=== PATIENT | female | born 1975 | race Caucasian/White ===

== ENCOUNTER 2018-02-13 15:14 | Emergency (ER) | payer OTHER ==
[2018-02-13 15:41] VITALS: BP 145/96; PULSE 86; TEMP 97.5; BMI 23.4
--- NOTE | 2018-02-13 16:43 | PDOC ---
Attending Attestation - Resident Resident Name: Julio Dee - ED Attending Attestation I have performed the following: I have examined & evaluated the patient, The case was reviewed & discussed with the resident, I agree w/resident's findings & plan, Exceptions are as noted
--- NOTE | 2018-02-13 16:52 | PDOC ---
History of Present Illness - General Chief Complaint: Chest Pain Stated Complaint: CHEST PAIN History Source: Patient - History of Present Illness Initial Comments: 02/13/18 16:32 42F with pmh of brain aneurysm last year presents to the ED with sternal chest pain and shortness of breath suddenly since last night. No cough, sore throat, fever, leg swelling or leg pain. No recent travel. 02/13/18 16:56 Past History - Past Medical History Allergies/Adverse Reactions: Allergies Allergy/AdvReac Type Severity Reaction Status Date / Time No Known Allergies Allergy Verified 02/13/18 15:16 Home Medications: Ambulatory Orders NK [No Known Home Medication] 02/13/18 CVA: Yes (AVM) COPD: No CHF: No - Surgical History Neurologic Surgery: Yes (AVM CLIPPED) - Suicide/Smoking/Psychosocial Hx Smoking History: Never smoked Hx Alcohol Use: No Drug/Substance Use Hx: No Substance Use Type: None Review of Systems - Review of Systems Able to Perform ROS?: Yes Is the patient limited Romansh proficient: No Constitutional: No: Symptoms Reported HEENTM: No: Symptoms Reported Respiratory: Yes: See HPI Cardiac (ROS): No: Symptoms Reported ABD/GI: No: Symptoms Reported : No: Symptoms Reported *Physical Exam - Vital Signs Last Vital Signs Temp Pulse Resp BP Pulse Ox 97.5 F L 86 18 145/96 100 02/13/18 15:15 02/13/18 15:15 02/13/18 15:15 02/13/18 15:15 02/13/18 15:15 - Physical Exam General Appearance: Yes: Nourished, Appropriately Dressed. No: Apparent Distress HEENT: positive: EOMI, MAR, Normal ENT Inspection Respiratory/Chest: positive: Chest Tender (over sternum), Lungs Clear, Normal Breath Sounds. negative: Respiratory Distress Cardiovascular: positive: Regular Rhythm, Regular Rate, S1, S2 Gastrointestinal/Abdominal: positive: Normal Bowel Sounds, Flat, Soft. negative : Tender Musculoskeletal: positive: Normal Inspection. negative: CVA Tenderness Integumentary: positive: Normal Color, Dry, Warm Neurologic: positive: Fully Oriented, Alert, Normal Mood/Affect, Normal Response , Motor Strength 5/5 ED Treatment Course - LABORATORY CBC & Chemistry Diagram: 02/13/18 16:45 02/13/18 16:45 - RADIOLOGY Radiology Studies Ordered: Category Date Time Status CHEST PA & LAT [RAD] Stat Radiology 02/13/18 16:14 Ordered Medical Decision Making - Medical Decision Making 02/13/18 17:04 xray. labs 02/13/18 17:49 All WNL. Patient declined motrin. ok to d/c *DC/Admit/Observation/Transfer Diagnosis at time of Disposition: Costochondritis, acute - Discharge Dispostion Disposition: HOME Condition at time of disposition: Good Decision to Admit order: No - Referrals Referrals: Lyn Peter [Primary Care Provider] - - Patient Instructions Printed Discharge Instructions: DI for Atypical Chest Pain Additional Instructions: Come back to the ER for any new, worsening or concerning symptom. - Post Discharge Activity
[2018-02-13 17:09] LABS: HEMATOCRIT 36.1 % (32.4-45.2); HEMOGLOBIN 11.2 GM/dl (10.7-15.3); MCH 22.3 pg (25.7-33.7); MCHC 31.1 g/dl (32.0-36.0); MEAN CELL VOLUME 71.8 fl (80-96); MEAN PLT VOLUME 8.4 fl (7.5-11.1); PLATELET COUNT 316 K/MM3 (134-434); RBC 5.03 M/mm3 (3.60-5.2); RDW 16.8 % (11.6-15.6); WHITE BLOOD COUNT 4.5 K/mm3 (4.0-10.8)
[2018-02-13 17:15] LABS: ALBUMIN 3.8 g/dl (3.5-5.0); ALK PHOS 76 U/L (32-92); ANION GAP 9 MMOL/L (8-16); BILIRUBIN,TOTAL 0.4 mg/dl (0.2-1.0); BLOOD UREA NITROGEN 11 mg/dl (7-18); CALCIUM 8.6 mg/dl (8.4-10.2); CHLORIDE 106 mmol/L (98-107); CO2 23 mmol/L (22-28); CREATININE 0.6 mg/dl (0.6-1.3); GLUCOSE,RANDOM 86 mg/dl (74-106); POTASSIUM 3.6 mmol/L (3.5-5.1); SGOT/AST 35 U/L (10-42); SGPT/ALT 34 U/L (10-40); SODIUM 138 mmol/L (136-145); TOT PROT 7.7 g/dl (6.4-8.3)
[2018-02-13] MEDS ORDERED: IBUPROFEN 600 MG TABLET (FP) PO ONE ×3 (17:41→17:49)
[2018-02-13 19:34] LABS: ANISOCYTOSIS 1+; PLATELET ESTIMATE ADEQUATE
--- NOTE | 2018-02-15 17:36 | EKG ---
Test Reason : Blood Pressure : / mmHG Vent. Rate : 080 BPM Atrial Rate : 080 BPM P-R Int : 156 ms QRS Dur : 074 ms QT Int : 358 ms P-R-T Axes : 049 -03 026 degrees QTc Int : 412 ms NORMAL SINUS RHYTHM NORMAL ECG NO PREVIOUS ECGS AVAILABLE Confirmed by ARIANNE CARVAJAL, GABBIE ([id number]) on 02/15/2018 5:36:19 PM Referred By: Confirmed By:GABBIE ACUÑA MD
== END 2018-02-13 17:58 | disposition home or self-care (01) ==
LOC: FER 15:14
DX: M94.0 Chondrocostal junction syndrome [Tietze] (principal); Z86.79 Personal history of other diseases of the circulatory system
CPT/HCPCS: 36415; 71046-TC-FY; 80053; 84484; 85025; 93005; 99283-25

== ENCOUNTER 2021-05-15 11:19 | Emergency (ER) | payer OTHER ==
[2021-05-15 11:54] VITALS: BP 121/81; PULSE 82; TEMP 97.8; BMI 24.4
[2021-05-15] MEDS ORDERED: FAMOTIDINE 20 MG TABLET PO ONE (12:03)
[2021-05-15] MEDS ORDERED: ONDANSETRON *ODT* 4 MG TABLET SL ONE (12:03)
[2021-05-15] MEDS ORDERED: FAMOTIDINE 20 MG TABLET ONE (12:10)
[2021-05-15] MEDS ORDERED: ONDANSETRON *ODT* 4 MG TABLET ONE (12:10)
[2021-05-16 14:12] LABS: SARS-CoV-2 NAA Not Detected (Not Detected)
== END 2021-05-15 13:30 | disposition home or self-care (01) ==
LOC: FER 11:19
DX: R05.1 Acute cough (principal); R09.81 Nasal congestion; M79.10 Myalgia, unspecified site
CPT/HCPCS: 99283-25; C9803; Q0162; U0003; U0005

== ENCOUNTER 2022-10-12 08:56 | Emergency (ER) | payer OTHER ==
[2022-10-12] MEDS ORDERED: SODIUM CHLORIDE 1,000 ML IV STA ×2 (09:06→10:55)
[2022-10-12] MEDS ORDERED: ONDANSETRON 4 MG/2 ML VIAL IVPB ONE (09:07)
[2022-10-12] MEDS ORDERED: FAMOTIDINE 20 MG/50 ML IVPB 20 MG/50 ML MG IVPB ONE ×2 (09:07→09:31)
[2022-10-12] MEDS ORDERED: ACETAMINOPHEN 1000 MG/100 ML BAG IVPB ONE (09:07)
[2022-10-12 09:15] VITALS: BMI 24.4
[2022-10-12] MEDS ORDERED: ACETAMINOPHEN INJECTION 100 ML IVPB ONE (09:31)
[2022-10-12] MEDS ORDERED: ONDANSETRON 4 MG/2 ML VIAL ONE (09:31)
[2022-10-12 10:05] LABS: HEMATOCRIT 41.9 % (32.4-45.2); HEMOGLOBIN 13.7 G/dL (10.7-15.3); MCH 26.1 pg (25.7-33.7); MCHC 32.7 g/dl (32.0-36.0); MEAN CELL VOLUME 79.9 fl (80-96); MEAN PLT VOLUME 9.9 fl (7.5-11.1); RBC 5.25 10^6/uL (3.60-5.2); RDW 17.1 % (11.6-15.6)
[2022-10-12 10:08] LABS: ALBUMIN 3.8 g/dl (3.4-5.0); BILIRUBIN,TOTAL 0.5 mg/dl (0.2-1); CALCIUM 9.1 mg/dl (8.5-10); CREATININE 0.7 mg/dl (0.55-1.3); TOT PROT 8.1 g/dl (6.4-8.2)
[2022-10-12 10:09] LABS: POTASSIUM 3.9 mmol/L (3.5-5.1)
[2022-10-12 10:12] LABS: PLATELET ESTIMATE ADEQUATE
[2022-10-12] MEDS ORDERED: PENICILLIN G BENZATHINE 1,200,000 UNIT/2 ML PFS IM ONE ×2 (13:08→13:16)
[2022-10-12] MEDS ORDERED: KETOROLAC TROMETHAMINE 30 MG/1 ML VIAL IVPUSH ONE (13:41)
[2022-10-12] MEDS ORDERED: KETOROLAC TROMETHAMINE 30 MG/1 ML VIAL ONE (13:41)
[2022-10-12] MEDS ORDERED: ACETAMINOPHEN 325 MG TABLET (FP) ONE (13:43)
[2022-10-12] MEDS ORDERED: ACETAMINOPHEN 325 MG TABLET (FP) PO ONE (13:43)
[2022-10-12 13:53] VITALS: BP 122/81; PULSE 65; RESP 18; TEMP 98.9
== END 2022-10-12 14:15 | disposition home or self-care (01) ==
LOC: FER 08:56
PROC: 3E033GC Introduction of Other Therapeutic Substance into Peripheral Vein, Percutaneous Approach (ICD-10-PCS; principal; 2022-10-12)
PROC: 3E033NZ Introduction of Analgesics, Hypnotics, Sedatives into Peripheral Vein, Percutaneous Approach (ICD-10-PCS; 2022-10-12)
PROC: 3E033GC Introduction of Other Therapeutic Substance into Peripheral Vein, Percutaneous Approach (ICD-10-PCS; 2022-10-12)
PROC: 3E0337Z Introduction of Electrolytic and Water Balance Substance into Peripheral Vein, Percutaneous Approach (ICD-10-PCS; 2022-10-12)
PROC: 3E02329 Introduction of Other Anti-infective into Muscle, Percutaneous Approach (ICD-10-PCS; 2022-10-12)
DX: R11.2 Nausea with vomiting, unspecified (principal); J02.0 Streptococcal pharyngitis
CPT/HCPCS: 36415; 80053; 83690; 85027; 87651; 99284-25